=== PATIENT | female | born 2000 | race African-American/Black ===

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

== ENCOUNTER 2019-12-15 19:46 | Emergency (ER) | payer OTHER ==
[~2019-12-15] VITALS: Ht 172.7 cm; Wt 64.0 kg
[2019-12-15 20:24] LABS: CLARITY URINE CLOUDY (CLEAR); COLOR URINE YELLOW (YELLOW); KETONES URINE 3+ (NEGATIVE); LEUKOCYTE ESTERASE URINE 3+ (NEGATIVE); NITRITE URINE POSITIVE (NEGATIVE); OCCULT BLOOD URINE TRACE (NEGATIVE); PH URINE 7.5 (4.5-8.0); PROTEIN URINE TRACE (NEGATIVE)
[2019-12-15 21:04] LABS: BASOPHILS % 0.4 % (0.0-2.0); EOSINOPHILS % 0.3 % (0.0-5.0); HEMATOCRIT. 41.2 % (36.0-48.0); HEMOGLOBIN. 13.8 g/dL (12.0-16.0); LYMPHOCYTES % 11.8 % (20.0-50.0); MEAN CORPUSCULAR HEMOGLOBIN 29.7 pg (28.0-32.0); MEAN CORPUSCULAR VOLUME 88.8 fL (81.0-99.0); MONOCYTES % 8.1 % (2.0-8.0); NEUTROPHILS % 79.4 % (40.0-76.0); PLATELET 175 x1000/uL (130-400); RED BLOOD CELL COUNT 4.64 mill/uL (4.2-5.4); RED CELL DISTRIBUTION WIDTH 13.8 % (11.6-14.6)
[2019-12-15 21:06] LABS: CHLORIDE 107 mEq/L (98-107)
[2019-12-15 21:08] LABS: INR 1.1
[2019-12-15 21:16] LABS: HCG SCREEN NEGATIVE
[2019-12-15] MEDS ORDERED: KETOROLAC 60MG/2ML VIAL IM NR (21:30)
[2019-12-15 21:38] VITALS: BP 121/68
[2019-12-15] MEDS ORDERED: ONDANSETRON HCL 4MG/2ML INJ IV ONE (22:00)
== END 2019-12-15 22:49 | disposition home or self-care (01) ==
LOC: ER 19:46
DX: N12 Tubulo-interstitial nephritis, not specified as acute or chronic (principal); R03.0 Elevated blood-pressure reading, without diagnosis of hypertension
CPT/HCPCS: 36415; 80053; 81003; 81025; 83690; 84703; 85025; 85610; 87077; 87086; 87186; 96372; 96374; 99284; J1885; J2405